=== PATIENT | female | born 1980 | race Caucasian/White ===

== ENCOUNTER → 2021-06-14 | Outpatient (CLI) | payer OTHER ==
[~2021-06-14] VITALS: Ht 182.9 cm; Wt 95.5 kg
[~2021-06-14] MED LIST: DOCU100C37 PO; FERR325T74 PO; IBUP-1780 PO; LIDOCAINE 1% INJ 20 ML VIAL INJ ONE; LIDOCAINE 1% INJ 20 ML VIAL ONE; ONDA4TAB8 PO; OXYC-12 PO; OXYC1TAB11 PO; PREN1TAB25 PO; RANI-603 PO; RANI150T90 PO
--- NOTE | 2021-06-14 13:00 | Diagnostic Imaging Report ---
INDICATION: Left-sided thyroid nodules. Patient presents for ultrasound-guided fine needle aspiration and Rotex biopsy. Patient brought to the procedure room and placed on the table in the supine position. Ultrasound imaging of the left neck was performed to evaluate appropriate entry site. Left neck was then prepped and draped in usual sterile fashion. Small amount of 1% lidocaine was utilized for local anesthesia. Total of 4 passes were made into the solid nodule with a slight cystic component in the midportion of left lobe of thyroid utilizing 25-gauge needles and fine-needle aspiration technique. A single pass was made with a Rotex needle and Rotex biopsy was performed. Needle was removed and hemostasis was obtained. IMPRESSION: Successful ultrasound guided fine needle aspiration Rotex biopsy of the mixed solid and cystic nodule in the mid left lobe of the thyroid. Pathology results are currently pending. Dictated by: Dictated on workstation # [id number]
--- NOTE | 2021-06-14 13:04 | Diagnostic Imaging Report ---
INDICATION: Left thyroid nodule. Patient presents for ultrasound-guided fine needle aspiration and biopsy. Patient brought to the procedure and placed on table supine position. Placenta imaging of the left neck was performed to evaluate appropriate entry site. Left neck was prepped and draped in the usual sterile fashion. Small amount of 1% lidocaine was utilized for local anesthesia. Total of 4 passes were made into the dominant solid nodule in the lower pole left lobe of thyroid utilizing 25-gauge needles and final aspiration technique. Single pass was made with a Rotex needle and Rotex biopsy was performed. [place] were removed and hemostasis was obtained using manual compression. Patient tolerated procedure well and left the department in stable condition. IMPRESSION: Successful ultrasound guided fine needle aspiration and Rotex biopsy of a left lobe lower pole thyroid nodule. Dictated by: Dictated on workstation # [id number]
== END ==
LOC: RAD 11:00
PROVIDERS: ATTEND Otolaryngology Otolaryngology/Facial Plastic Surgery
DX: E04.2 Nontoxic multinodular goiter (principal)
CPT/HCPCS: 10005; 10006